=== PATIENT | male | born 1950 | race Caucasian/White ===

== ENCOUNTER 2017-12-16 06:23 | Inpatient (IN) | payer OTHER ==
[~2017-12-16] VITALS: Ht 152.4 cm; Wt 98.9 kg
[2017-12-16 10:19] LABS: HEMATOCRIT 37.6 % (42.0-52.0); HEMOGLOBIN 12.5 gm/dL (14.0-18.0); MCH 29.2 pg (26.0-34.0); MCHC 33.3 g/dL (28.0-37.0); MCV 87.7 fL (80.0-100.0); RBC 4.29 mil/uL (4.50-6.00); RDW 13.9 % (10.5-14.5); WBC 11.7 thou/uL (4.0-11.0)
[2017-12-16 10:29] LABS: CALCIUM 8.9 mg/dL (8.5-10.1); CREATININE 1.3 mg/dL (0.7-1.3); POTASSIUM 3.4 mmol/L (3.5-5.1)
[2017-12-16 10:34] LABS: ALBUMIN 3.2 g/dL (3.4-5.0); TOTAL BILIRUBIN 0.5 mg/dL (<0.1-1.0); TOTAL PROTEIN 6.9 g/dL (6.4-8.2)
[2017-12-16] MEDS ORDERED: WELLBUTRIN 100100 MG PO (10:45)
[2017-12-16] MEDS ORDERED: PREVACID30 MG PO (10:47)
[2017-12-16] MEDS ORDERED: NORCO 5-325 TA1 EACH PO (10:48)
[2017-12-16] MEDS ORDERED: COUMADIN 1MG TAB1 M1 PO (10:51)
[2017-12-16] MEDS ORDERED: LIPITOR10 MG PO (10:53)
[2017-12-16 12:08] LABS: ALBUMIN 3.3 g/dL (3.4-5.0); DIRECT BILIRUBIN 0.1 mg/dL (<0.1-0.3); TOTAL BILIRUBIN 0.4 mg/dL (<0.1-1.0); TOTAL PROTEIN 6.3 g/dL (6.4-8.2)
[2017-12-16 12:12] LABS: CHOLESTEROL 130 mg/dL (<200); HDL CHOLESTEROL 36 mg/dL (>40); LDL CHOLESTEROL 76 mg/dL (<100); TC:HDL 3.6 Ratio (Not establshd); TRIGLYCERIDE 90 mg/dL (<150); VLDL 18 mg/dL (<40)
[2017-12-16 13:32] LABS: URINE BILIRUBIN NEGATIVE (Negative); URINE BLOOD TRACE (Negative); URINE CLARITY CLEAR; URINE COLOR YELLOW; URINE GLUCOSE-RANDOM* NEGATIVE (Negative); URINE KETONES 1+ (Negative); URINE LEUKOCYTES NEGATIVE (Negative); URINE NITRITE NEGATIVE (Negative); URINE PROTEIN (DIPSTICK) NEGATIVE (Negative); URINE SPECIFIC GRAVITY 1.015 (1.005-1.035); URINE UROBILINOGEN 0.2 E.U./dl (0.2-1.0)
[2017-12-16 15:22] LABS: INR 3.7; PROTIME 37.2 Seconds (9.3-11.4)
[2017-12-16 15:57] LABS: FOLIC ACID 15.7 ng/mL (8.6-58.9)
[2017-12-16 16:00] VITALS: BP 137/79
[2017-12-16 19:15] VITALS: BP 143/87
[2017-12-17 03:30] VITALS: BP 140/84
[2017-12-17 05:34] LABS: HEMATOCRIT 37.4 % (42.0-52.0); HEMOGLOBIN 12.6 gm/dL (14.0-18.0); MCH 29.9 pg (26.0-34.0); MCHC 33.8 g/dL (28.0-37.0); MCV 88.6 fL (80.0-100.0); RBC 4.22 mil/uL (4.50-6.00); RDW 13.9 % (10.5-14.5); WBC 12.1 thou/uL (4.0-11.0)
[2017-12-17 05:44] LABS: CALCIUM 8.4 mg/dL (8.5-10.1); CREATININE 1.1 mg/dL (0.7-1.3); POTASSIUM 3.9 mmol/L (3.5-5.1)
[2017-12-17 08:14] VITALS: BP 109/57
[2017-12-17 11:12] VITALS: BP 132/86
[2017-12-17 12:50] LABS: INR 2.7; PROTIME 27.5 Seconds (9.3-11.4)
[2017-12-17 17:49] VITALS: BP 132/86
== END 2017-12-17 18:28 | disposition home or self-care (01) | DRG 558 ==
LOC: 3W 06:23
PROVIDERS: Hospitalist; Nurse Practitioner
DX: M62.82 Rhabdomyolysis (principal); I69.351 Hemiplegia and hemiparesis following cerebral infarction affecting right dominant side; Z68.41 Body mass index [BMI] 40.0-44.9, adult; I10 Essential (primary) hypertension; E66.9 Obesity, unspecified; E78.5 Hyperlipidemia, unspecified; Z98.42 Cataract extraction status, left eye; Z98.41 Cataract extraction status, right eye; Z88.8 Allergy status to other drugs, medicaments and biological substances; Z90.49 Acquired absence of other specified parts of digestive tract; Z87.891 Personal history of nicotine dependence